=== PATIENT | male | born 1985 | race African-American/Black ===

== ENCOUNTER 2022-01-05 10:51 | Emergency (ER) | payer MEDICARE, MEDICAID ==
[~2022-01-05] VITALS: Ht 157.5 cm; Wt 75.0 kg
[2022-01-05 11:11] VITALS: BP 101/62
== END 2022-01-05 16:01 | disposition left against medical advice (07) ==
LOC: ER 10:51
DX: R59.0 Localized enlarged lymph nodes (principal); F20.0 Paranoid schizophrenia
CPT/HCPCS: 76536; 99284